=== PATIENT | female | born 1940 | race Caucasian/White ===

== ENCOUNTER 2016-07-23 14:39 | Inpatient (IN) | payer MEDICARE, OTHER ==
--- NOTE | 2016-10-12 11:32 | HP ---
DATE OF CLINIC: 10/10/2016 JUSTA PHAM : 1940 PLANNED PROCEDURE: Right Total Knee Arthroplasty DATE OF PROCEDURE: October 15, 2016 SURGEON: Luca Simmons M.D. PCP: Dr. Manish George HISTORY OF PRESENT ILLNESS Justa Pham is a 76 year old female. * Medication list reviewed with patient allergy list reviewed with patient. * Tried Injections Right knee about 2 months ago, with another provider @ PCP office * Has not tried NSAIDS * Has not tried Physical Therapy Mrs. Pham is in today pre-operatively for her upcoming right total knee arthroplasty with Dr. Simmons on 10/15/16. Patient presents in good spirits and is ready to proceed. She denies recent illness or change in health. She did have a double bypass in May of 2015 and has done well. She is on Plavix and 81mg of aspirin daily. Her lead rider has requested discontinuing Plavix 5 days prior to surgery but continuing the aspirin. Patient denies prior surgical complications. She does have chronic lumbar back pain and has 2 prior fusions and laminectomy. Patient states she also has allergies and sensitivities to many opiate pain medications but tolerates morphine sulfate well. Pre-operative labs are pending. Her recent consult with Dr. Simmons follows: [id number] female who recently saw Arvin approximately 6 weeks ago for bilateral knee pain. Her history is as follows: The patient states that currently she is having left knee symptoms greater than that of the right initiated in January of this year. She was seen at [facility]. She had onset of significant amount of pain, swelling and some posterior soreness. She had x-rays and a left knee ultrasound and was subsequently diagnosed with ruptured Cavazos's cyst. The patient states that she has had increased difficulties with ambulatory activities, squatting, any attempt at kneeling, ascending stairs and descending stairs. She has had treatment on her right knee. She had an injection about two months ago with mild relief of her symptoms on the right after this injection. She denies significant degree of current hip pain, but has a lengthy history with regards to her spine having had multiple lumbar surgeries, laminectomies and lumbar fusions dating back to 2004 and 2006. Patient has used a trekking pole since seeing Arvin. She uses a single trekking pole that "helps significantly". 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 She also has coronary artery disease s/p a coronary artery bypass graft in May of 2015 with harvest of a right leg vein. Dr. Pope was her surgeon. Dr. Haas is her lead rider. She also has concerns regarding pain medication. She has had some difficulty with some pain medications in the past. She has a history of an anaphylactic reaction after a spine procedure, uncertain etiology. She has tolerated morphine without issues. In addition, she has chronic low back pain. She has non-insulin dependent diabetes. She has a previous left arterial femoral stent. She is on chronic Plavix. CURRENT MEDICATION * Aspirin EC 81 MG Tablet Delayed Release 1 once a day 0 days, 0 refills * Docusate Sodium 250 MG Capsule as needed 0 days, 0 refills * Docusate Sodium 250 MG Capsule as needed 0 days, 0 refills * Lisinopril 5 MG Tablet 1 once a day 0 days, 0 refills * Vitamin D3 5000 Unit Capsule as directed 0 days, 0 refills PAST MEDICAL/SURGICAL HISTORY Reported: Shoulder Arthroscopy Right shoulder Rotator cuff 1990 Left rotator cuff 05/2013. Medical: Bladder disease Diego-tox treatment 03/2014, Reported numbness Neuropathy both feet, Reported tingling Neuropathy both feet, cardiac history, Diabetes Mellitus Pre, Hypertension, Osteoporosis, and Vertigo. Surgical / Procedural: Prior surgery Multiple arm surgeries 1967- Fused Left thumb 2000 Sinus 2004 Angioplasty Left leg 2006 & 07/2010 & Stent 11/2010, Appendectomy 1975, Cholecystectomy 1983, Carpal Tunnel Surgery Both hands 2000-, Cardiac surgery Angioplasty 2x 1989- Angioplasty (stent) 2005-12 Angioplasty (2 stents) 12/2014 Angioplasty (stent) 03/2015 Double bypass 05/2015, and Back Surgery Laminectomy 2004 Lumbar fusion 2004 lumbar fusion 2006. Surgical: * Hysterectomy 1975 SOCIAL HISTORY Social history unchanged. Behavioral: Quit smoking 1984. Smoking status: Former smoker. Alcohol: Alcohol 1-2 beers a month. Work: Homemaker. ALLERGIES * Codeine Derivatives * Demerol * Dilaudid * Fentanyl * NSAIDS * OxyContin * Penicillin * Percocet * Sulfa Drugs * Talwin * Vicodin FAMILY HISTORY 1 children living Family medical history diabetes-father COPD-mother Cancer father Heart disease mother Osteoarthritis mother REVIEW OF SYSTEMS Systemic: No fever and no recent weight change. Head: No head symptoms. Cardiovascular: No cardiovascular symptoms. Pulmonary: No pulmonary symptoms. Gastrointestinal: No gastrointestinal symptoms. Psychological: No psychological symptoms. Skin: No skin lesions and no rash . Musculoskeletal: Chronic LBP, multi-joint OA. PHYSICAL FINDINGS * Vitals taken 10/10/2016 09:58 am BP-Sitting R 146/69 mmHg 100 - 120/56 - 80 BP Cuff Size Regular Pulse Rate-Sitting 58 bpm 50 - 100 Temp-Oral 96.7 F 96 - 101 Height 67 in 59 - 68 Weight 221 lbs 95 - 175 Body Mass Index 34.6 kg/m2 Body Surface Area 2.11 m2 Pain Level 2 Ears, Nose, Throat: * ENT: normal. Lungs: * Clear to auscultation. Cardiovascular: Heart Rate and Rhythm: * Normal. Abdomen: * Normal. Neurological: Motor: * Dominant Hand = Right Hand. Patient is an obese female in no acute distress, normal appearing mood and affect. She has a shuffling, stiff-legged gait. Pelvis is level. Evaluation of the right knee shows skin integrity to be well-preserved, no wounds, rashes or lesions. She has a valgus alignment. This is partially correctable. Motion is 5-110 degrees. She does have significant swelling, no gross effusion. Ligamentous exam is intact for cruciates and collaterals. She is tender lateral greater than medial, fairly diffuse. There is pain with patellar compression and some crepitation. NT in the proximal tibia. She does have some lower extremity edema that is symmetric bilaterally. She is able to flex and extend her toes and ankle. Light touch sensation is diminished, stocking glove distribution as she discussed. She has 1+ dorsalis pedis pulse and non-palpable posterior tibial pulse. Gentle rotation of the hip is non-irritable. Sitting SLR is negative. Evaluation of the left knee shows mild swelling. Skin integrity to be well-preserved, no wounds, rashes or lesions. No gross effusion. She has motion 0-110 degrees. Pain with patellar compression. Mild tenderness diffusely medial and lateral. Ligamentous exam is intact for cruciates and collaterals. NT in the proximal tibia. Calf is soft and NT with edema as noted previously. Her foot is warm. She is able to flex and extend her toes and ankle. I am unable to palpate a dorsalis pedis or posterior tibial pulse. TESTS Previous 3 views bilateral knees, outside films, 01/23/16, on the left and 12/09/15 on the right demonstrate advanced degenerative disease on the right side. This is tricompartmental with significant lateral compartment involvement, periarticular sclerosis and hypertrophic spurring. She has mild medial compartment irregularity and moderately advanced degenerative changes of the patellofemoral articulation involving primarily the lateral facet. Uncertain whether these are weight-bearing films. Left knee shows mild irregularity of the medial and lateral compartments. Relatively well maintained joint space with marked patellofemoral changes and complete obliteration of the lateral facet. Again, unclear whether these are weight-bearing films. They do not appear to be. ASSESSMENT * Localized primary osteoarthritis of the right knee Advanced DJD, bilateral knees, clinically and radiographically worse on the right. THERAPY * Patient fall risk screen positive. * Patient eligible for fall risk assessment. * Patient received fall risk assessment. PLAN * Unilateral primary osteoarthritis, right knee Physical Therapy: PT Marla Meeks * Total knee arthroplasty -Right Discussed with patient in detail the limitations, expectations as well as risks and possible complications of surgery including, but not limited to wound problems or infection, neurovascular injury, continued knee pain or dysfunction, including the possibility of prosthetic wear or failure over time that may require additional operative or non-operative treatment. Patient also realizes the perioperative risks including risks associated with anesthesia and would like to proceed. A full PAR conference was held, questions and concerns addressed and informed consent was obtained. Patient will be sent from my office for completion of the preoperative workup. [facility] for perioperative medical management. Patient will resume Plavix and aspirin postoperatively for DVT prophylaxis. Patient would like to perform their postop PT at [facility] with right total knee arthroplasty protocol WBAT. CARE TEAM Manish George MD [facility] Cuauhtemoc Auguste M.D. Cardiovascular Disease CC: Manish George MD [facility]/sg
[2016-10-15] MEDS ORDERED: PROPOFOL 20 ML IV ONE ×3 (09:29→14:21)
[2016-10-15] MEDS ORDERED: MIDAZOLAM HCL 5 MG/5 ML VIAL ONE (09:29)
[2016-10-15] MEDS ORDERED: LIDOCAINE 2% (PRES FREE) 5 ML VIAL ONE (09:29)
[2016-10-15] MEDS ORDERED: FENTANYL 100 MCG/2 ML VIAL ONE (09:30)
[2016-10-15] MEDS ORDERED: IV START KIT ONE (09:35)
[2016-10-15] MEDS ORDERED: SODIUM CHLORIDE 0.9% 1,000 ML ONE (09:36)
[2016-10-15] MEDS ORDERED: SPINAL PROCEDURAL TRAY 1 EACH ONE (10:18)
[2016-10-15] MEDS ORDERED: NERVE BLOCK PROCEDURAL TRAY 1 EACH ONE (10:18)
[2016-10-15] MEDS ORDERED: ROPIVACAINE 0.5% 30 ML VIAL ONE (10:19)
[2016-10-15] MEDS ORDERED: CLINDAMYCIN 900 MG PREMIX 50 ML IV ONE (10:26)
[2016-10-15] MEDS ORDERED: TRAMADOL HCL 50 MG TABLET ONE (10:28)
[2016-10-15] MEDS ORDERED: ONDANSETRON 4 MG/2ML 2 ML VIAL ONE ×2 (10:28→12:59)
[2016-10-15] MEDS ORDERED: CELECOXIB 200 MG CAPSULE ONE ×2 (10:29→10:30)
[2016-10-15] MEDS ORDERED: GABAPENTIN 600 MG TABLET ONE (10:29)
[2016-10-15] MEDS ORDERED: FAMOTIDINE 20 MG TABLET ONE (10:29)
[2016-10-15] MEDS ORDERED: CLONIDINE HCL 0.1 MG/24 HR (7 DAY PATCH) TD ONE ×2 (10:29→10:35)
[2016-10-15] MEDS ORDERED: FAMOTIDINE 20 MG TABLET PO ONE (10:35)
[2016-10-15] MEDS ORDERED: GABAPENTIN 600 MG TABLET PO ONE (10:51)
[2016-10-15] MEDS ORDERED: ONDANSETRON 4 MG/2ML 2 ML VIAL IV ONE (10:51)
[2016-10-15] MEDS ORDERED: ONDANSETRON 4 MG/2ML 2 ML VIAL IM ONE (10:51)
[2016-10-15] MEDS ORDERED: BUPIVACAINE 0.75% SPINAL AMPUL 2 ML ONE (10:54)
[2016-10-15] MEDS: GABAPENTIN 600 MG TABLET PO ONE ×2 (11:10→16:26)
[2016-10-15] MEDS ORDERED: BUPIVACAINE 0.25% (MDV) 20 ML in SODIUM CHLORIDE 0.9% FLUSH 20 ML IF PRN (11:30)
[2016-10-15] MEDS ORDERED: BUPIVACAINE 0.25% (MDV) 24 ML, MORPHINE SULFATE 8 MG, EPINEPHRINE 0.3 MG in SODIUM CHLO... IF PRN (12:25)
[2016-10-15] MEDS ORDERED: POLYMYXIN B SULFATE 500,000 UNITS, BACITRACIN 25,000 UNITS in SODIUM CHLORIDE 3 L IRRIG... IR PRN (12:26)
[2016-10-15] MEDS ORDERED: TRANEXAMIC ACID 1,000 MG in SODIUM CHLORIDE 0.9% 100 ML IV PRN (12:26)
[2016-10-15] MEDS ORDERED: EPHEDRINE SULFATE UD SYR 25 MG 25 MG/5 ML SYRINGE IV ONE ×2 (13:11→13:31)
[2016-10-15] MEDS ORDERED: MORPHINE SULFATE 4 MG/ML SYRINGE IV PRN (13:22)
[2016-10-15] MEDS ORDERED: ONDANSETRON 4 MG/2ML 2 ML VIAL IV PRN ×2 (13:22→15:57)
[2016-10-15] MEDS ORDERED: ON-Q PUMP/ROPIVACAINE 0.2% 450 ML in PREMIX BAG 1 EACH NB PRN ×2 (13:22→15:57)
[2016-10-15] MEDS ORDERED: ATROPINE SULFATE 0.4 MG/1 ML VIAL IV PRN (13:22)
[2016-10-15] MEDS ORDERED: PROMETHAZINE HCL 25 MG/ML VIAL IM PRN (13:22)
[2016-10-15] MEDS ORDERED: NALOXONE HCL 0.4 MG/ML VIAL IV PRN (13:22)
[2016-10-15] MEDS ORDERED: SODIUM CHLORIDE 0.9% 1,000 ML IV SCH (13:30)
--- NOTE | 2016-10-15 14:35 | PCMBPN ---
Brief Post Op Note: Date of Procedure: 10/15/16 Preoperative Diagnosis: DJD right knee Postoperative Diagnosis: 1. [Same] Procedure: right TKA Surgeon: Luca Simmons MD [facility]ist[facility] Anesthesia: spinal/Add block ([place]) Findings: PF/LC Condition: stable to PAR Complications: none IV Fluids: 2100mLs of LR Urine Output: 350 mLs Estimated Blood Loss: 150 mLs Tourniquet Time: ~40 Specimens: [N/A] Implants: Legion Drains: none
[2016-10-15] MEDS ORDERED: ON-Q PUMP/ROPIVACAINE 0.2% 450 ML ONE (15:07)
[2016-10-15] MEDS ORDERED: BISACODYL 10 MG SUP PR PRN (15:57)
[2016-10-15] MEDS ORDERED: CALCIUM CARBONATE 500 MG TAB.CHEW PO PRN (15:57)
[2016-10-15 16:26] VITALS: BMI 33.7
--- NOTE | 2016-10-15 16:29 | RAD ---
HISTORY: Postop right TKR COMPARISON: 06/27/2016 TECHNIQUE: two of the right knee FINDINGS: A total knee arthroplasty is present. Hardware is intact with out signs of failure or loosening. There is no fracture or dislocation. Overlying bandaging does limit assessment. Vascular calcifications are present. Soft tissue gas is identified.. IMPRESSION: Intact hardware without fracture or dislocation. Satisfactory postoperative exam
[2016-10-15] MEDS: MORPHINE SULFATE 2 MG/ML SYRINGE IV PRN ×4 (16:32→19:44)
[2016-10-15] MEDS: ACETAMINOPHEN 500 MG TABLET PO SCH ×2 (16:59→23:48)
[2016-10-15] MEDS ORDERED: PUMP TUBING ONE (17:27)
[2016-10-15] MEDS ORDERED: NITROGLYCERIN 0.4 MG/TAB.SUBL BOT SL PRN (17:53)
[2016-10-15] MEDS: NS/Potassium Chlor 20 mEq 1,000 ML IV SCH (18:35)
--- NOTE | 2016-10-15 19:50 | CONS ---
FAM KESSLER [id number] HOSPITALIST CONSULT DATE OF ADMISSION: October 15, 2016 DATE OF CONSULTATION: October 15, 2016 REQUESTING PHYSICIAN: Luca Simmons M.D. REASON FOR CONSULTATION: Please assist with medical management in patient status post right total knee arthroplasty. RECENT HISTORY: The patient is a 76-year-old female here for elective right total knee arthroplasty. Per history and physical, cardiology had requested continue on aspirin but at 325 mg a day and hold the Plavix. At this time patient reports she is feeling well but is just having postoperative pain in her knee. Breathing is doing okay. Stomach is feeling fine. No other complaints. PAST MEDICAL: Remarkable for: 1. Coronary artery disease. She has had angioplasty in 2005 and then subsequent angioplasty with stenting in 2005 and then she has had further angioplasty in 2014 times two and ultimately went to two vessel coronary artery bypass graft in May,. She has been on aspirin and Plavix since that time. 2. She has a history of peripheral vascular disease and has a left femoral stent placed and has some degree of claudication in the calf at one block. Studies from her speech language pathologist suggest that she has at least a 50% stenosis on the left. 3. She has had neuropathy involving her legs up to the level of the knees and to some degree in the tips of her fingers. 4. She has had some chronic low back pain and has had previous laminectomy and lumbar fusion. 5. She has had pre-diabetes and is on lisinopril and metformin. 6. She also has osteoarthritis. 7. She had a history of anaphylaxis when she had a spinal procedure in 2006 and it was felt this was likely due to fentanyl but they had given her a long list of medicines that she should avoid taking, so her list of pain medicines is very restricted. PAST SURGICAL HISTORY: Remarkable for: 1. Arm surgeries in 1967 and 1969 after a fall on the left elbow. 2. Hysterectomy in 1975. 3. Appendectomy in 1975. 4. Cholecystectomy in 1983. 5. Rotator cuff surgery in 1990. 6. Angioplasty done in 1989 and 1990. 7. Left thumb fusion in 2000. 8. Carpal tunnel surgery in 2000 and 2001. 9. Sinus surgery in 2004. 10. Laminectomy in 2004. 11. Lumbar fusion in 2004 and 2006. 12. She had angioplasty with stent placement in 2005 and 2006. Subsequently angioplasty of the left leg in 2006 and 2010. 13. Left rotator cuff surgery in 2012. 14. Further cardiac angioplasty in December and March,. 15. Subsequent coronary artery bypass graft of two vessels in 2014. 16. Cataract surgery. ALLERGIES: Listed as: 1. CODEINE. 2. FENTANYL. 3. HYDROCODONE. 4. HYDROMORPHONE. 5. MEPERIDINE. 6. NONSTEROIDALS. 7. OXYCODONE. 8. PENICILLINS. 9. PENTAZOCINE. 10. SULFA. HOME MEDICATIONS: 1. Amitriptyline 5 mg at bedtime. 2. Aspirin 81 mg orally daily. 3. Atorvastatin 40 mg daily. 4. Bisacodyl 10 mg rectally as needed. 5. Plavix 75 mg daily. 6. Docusate 250 one orally daily as needed. 7. Fenofibrate 54 mg daily. 8. Lisinopril 5 mg daily. 9. Metformin 500 mg orally twice daily. 10. Nitrofurantoin 15 mg orally daily. 11. Nitroglycerin one tablet sublingually every five minutes times three doses as needed for chest pain. 12. Pregabalin 75 mg orally twice daily. 13. Vitamin D3 5000 units orally daily. SOCIAL HISTORY: She quit smoking in 1984. She reports one or two drinks per month. She has two cats. 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 She has one child with her and one from a prior relationship. No particular episcopal affiliation. Hobbies include sewing, crocheting and embroidery. FAMILY HISTORY: Father at 55 with diabetes and cancer. Mom age 83 of chronic obstructive pulmonary disease, coronary artery disease, and osteoarthritis. REVIEW OF SYSTEMS: Eyes have been okay. She did have cataract surgery. She states it was modestly helpful in that reduced halos but her visual acuity did not improve enough for her. Ears are okay. Nose is okay. She has had previous sinus surgeries. She does have frequent runny nose and occasional infection perhaps once a year. Mouth has been okay. Teeth have been okay. Neck has been okay. She has noted some decreased range of motion. Lungs are okay. Heart, previous coronary artery disease. No heaviness, no chest pain, no pressure which were the symptoms she had previously when she had her coronary artery disease. Stomach has been okay. She has occasional constipation which she takes prunes for. No significant diarrhea. She has a urinary catheter in currently. She did have Botox of the bladder which was very helpful for a spastic bladder. Legs have arthritis and neuropathy. She has some claudication reported at one block in the left calf. She has had no history of stroke, no skin complaints. Mood has been good. She states both she and her have DO NOT RESUSCITATE status and does not wish to have resuscitation in the event of a significant event. PHYSICAL EXAM: GENERAL: A non-toxic female. VITAL SIGNS: Blood pressure is 139/54, 100% saturation on supplemental oxygen 2 liters nasal cannula, heart rate 65, temperature is not available. HEAD: Head is normocephalic and atraumatic. EYES: Are unremarkable. Pupils are small consistent with administration of morphine. EARS: Normal with minimal injection of the ear drums bilaterally but no effusion. NOSE: Is unremarkable. MOUTH: Oropharynx unremarkable. Dentition is normal. Mucous membranes are normal. NECK: Is supple without masses or adenopathy. LUNGS: Are clear to auscultation bilaterally. HEART: Regular rate and rhythm without significant murmur. ABDOMEN: Is soft, nontender, nondistended. Bowel sounds are normal. No rebound. No guarding. No tenderness. EXTREMITIES: Her right knee is dressed and she has compression stockings bilaterally. She is able to move her toes on both feet but cannot feel much below her knees on both sides due to neuropathy. Hands are slightly cool but perfusion appears to be appropriate. NEUROLOGICAL: She is oriented times three and other than some initial discomfort that was relieved with the administration of morphine, she appears to be doing well postoperatively. PREOPERATIVE LABORATORY: Showed a white count of 9.2, hemoglobin of 14.1, platelets 242, INR is 0.95, sodium 142, potassium 4.1, chloride 103, CO2 31, BUN 18, creatinine 0.9, glucose 86. Calcium is 9.7. Liver function tests are normal. Urinalysis is normal. IMAGING: Chest x-ray is normal. Previous sternotomy noted. ELECTROCARDIOGRAM: Sinus bradycardia, possible anterior infarction age indeterminate . Nonspecific ST changes noted. Low voltage. ASSESSMENT AND PLAN: 1. Postoperative day zero status post right total knee arthroplasty. Appreciate orthopedic care. Postoperative pain may be complicated by a reported intolerance to multiple pain medications, but morphine should be adequate and appears to be well tolerated at this time. She has tolerated morphine well before. 2. Coronary artery disease status post bypass and stenting. I reviewed the note from orthopedics and reviewed the note from [facility]. Note from Dr. Auguste indicates no special cardiac workup required. And Plavix can be held for five days prior to the procedure and restarted when safe. Aspirin to be continued. Discussed with cardiology covering and increasing aspirin to 325 mg daily would also be acceptable while we hold the Plavix. 3. History of prediabetes. Will be holding metformin and lisinopril. 4. History of chronic pain and neuropathy. We will continue on the pregabalin. 5. Body mass index 33.7 which will affect care and recovery. 6. Peripheral vascular disease with previous stenting left leg and some degree of claudication but appearing to be stable. This is in the nonoperative leg. 7. History of anaphylaxis reported in 2006 attributed to pain medicines. She appears to be doing well at this time with the current pain medicines, so we will continue current status. 8. Assumed history of urinary tract infection on suppressive therapy with nitrofurantoin. Would defer to primary care physician regarding senior living use of nitrofurantoin. 9. DO NOT RESUSCITATE status confirmed with patient and . 10. Venous thrombosis prophylaxis. Anticipate continued mechanical treatment and the 325 mg dose of aspirin while she is here. Resumption of Plavix will be per orthopedics. Thank you for this consultation, we will follow with you. cc: Cuauhtemoc Auguste M.D. Luca Simmons M.D. Manish George M.D.
[2016-10-15] MEDS: PREGABALIN 75 MG CAP PO SCH (20:27)
[2016-10-15] MEDS: DOCUSATE SODIUM 100 MG CAPSULE PO SCH (20:27)
[2016-10-15] MEDS: ASCORBIC ACID 500 MG TABLET PO SCH (20:27)
[2016-10-15] MEDS: MORPHINE SULFATE 4 MG/ML SYRINGE IV PRN ×2 (21:54→23:47)
[2016-10-15] MEDS: CLINDAMYCIN 600 MG PREMIX 600 MG in Premix (D5W) 50 ml 1 EACH IV SCH (23:47)
[2016-10-15] MEDS: TEMAZEPAM 15 MG CAPSULE PO PRN (23:47)
[2016-10-16] MEDS ORDERED: MORPHINE SULFATE 4 MG/ML SYRINGE IV ONE (00:45)
[2016-10-16] MEDS: NS/Potassium Chlor 20 mEq 1,000 ML IV SCH ×3 (02:41→16:52)
[2016-10-16 05:50] LABS: HEMATOCRIT 39.1 % (37.0-47.0); HEMOGLOBIN 12.7 gm/l (12.0-16.0); MEAN CELL VOLUME 96.8 fl (81.0-99.0); MEAN CORPUSCULAR HEMOGLOBIN 31.4 pg (27.0-31.0); MEAN CORPUSCULAR HGB CONC 32.5 g/dl (33.0-37.0); RED CELL DISTRIBUTION WIDTH 13.2 % (11.5-14.5)
[2016-10-16] MEDS: MORPHINE SULFATE 4 MG/ML SYRINGE IV PRN (06:11)
[2016-10-16] MEDS: CLINDAMYCIN 600 MG PREMIX 600 MG in Premix (D5W) 50 ml 1 EACH IV SCH (06:12)
[2016-10-16 06:16] LABS: CALCIUM 7.9 mg/dL (8.6-10.3)
[2016-10-16] MEDS: ACETAMINOPHEN 500 MG TABLET PO SCH ×5 (07:10→19:31)
[2016-10-16] MEDS: MORPHINE SULFATE 2 MG/ML SYRINGE IV PRN (07:19)
[2016-10-16] MEDS ORDERED: ROPIVACAINE 0.75% 20 ML AMP ONE (07:32)
[2016-10-16] MEDS ORDERED: DEXAMETHASONE SOD PHOS 4 MG/1 ML VIAL ONE ×2 (07:33→08:17)
[2016-10-16] MEDS ORDERED: ROPIVACAINE 0.5% 30 ML VIAL ONE (08:16)
[2016-10-16] MEDS ORDERED: NERVE BLOCK PROCEDURAL TRAY 1 EACH ONE (08:19)
[2016-10-16] MEDS ORDERED: FENTANYL 100 MCG/2 ML VIAL ONE (08:21)
[2016-10-16] MEDS ORDERED: MIDAZOLAM HCL 5 MG/5 ML VIAL ONE (08:21)
[2016-10-16] MEDS ORDERED: SODIUM CHLORIDE 0.9% FLUSH 10 ML ONE (08:27)
[2016-10-16] MEDS ORDERED: CLOPIDOGREL BISULFATE 75 MG TABLET PO SCH (09:00)
--- NOTE | 2016-10-16 10:12 | OP ---
FAM KESSLER [id number] : 1940 DATE OF SURGERY: October 15, 2016 PREOPERATIVE DIAGNOSIS: Degenerative joint disease right knee POSTOPERATIVE DIAGNOSIS: Same PROCEDURE: Right Total Knee Arthroplasty COMPONENTS: Legion size 5 posterior stabilized Oxinium cemented femoral component, size 6 cemented tibial base plate, 9mm high flexion cross-linked polyethylene articular insert, 32mm resurfacing patella. SURGEON: Luca Simmons M.D. COUNTER CLERK TRACTOR PARTS: Suzan CHRISTIAN) ANESTHESIA: Spinal plus adductor nerve block per [place] ESTIMATED BLOOD LOSS: 150 cc IV FLUID REPLACEMENT: per anesthesia, 2.1 liters crystalloid. URINE OUTPUT: 350 cc DRAINS: None TOURNIQUET TIME: Approximately 40 minutes COMPLICATIONS: None HISTORY: Briefly, patient is a 76-year-old female with clinical and radiographic evidence of advanced degenerative disease of their right knee. They have failed traditional non-operative management and desire elective total knee arthroplasty. For additional details, please refer to the previously dictated Preoperative History and Physical Examination. A PAR conference was held, questions and concerns were addressed, and informed consent was obtained. FINDINGS: Tricompartmental degenerative disease significant in the lateral compartment with eburnation and wear of distal femur as well as posterior lateral femur, also fairly significant central and posterolateral tibial plateau. PROCEDURE: The patient was taken to the operating room after the placement of a spinal anesthetic and regional nerve block. They were placed supine on the operating room table, a tourniquet was applied to the proximal thigh and the right lower extremity was prepped and draped out in the usual sterile fashion. Preoperative IV antibiotics were given empirically. Intraoperative DVT prophylaxis consisted of contralateral foot pumps. Personal filtration suits were used as was a closed room environment. A WHO timeout was taken. Surgical site was identified and confirmed. The leg was then elevated and the tourniquet inflated after gravity exsanguination. This was released after initial exposure and not utilized again until cementation. Tranexamic acid was infiltrated over 10 minutes prior to incision, 1 gram dose per protocol. A similar 2nd dose was given at initiation of closure. With the knee flexed, an anteromedial incision was made from the level of the tibial tubercle to two centimeters proximal to the superior pole of the patella. A medial arthrotomy was performed with a mini-mid vastus approach. A medial subperiosteal proximal tibial release was performed and a portion of the anterior fat pad was excised to improve visualization. The supra-patellar pouch was raised subperiosteally. The anterior and posterior cruciate ligaments were excised as were the remaining portions of the anterior horns of the medial and lateral menisci. Minimally invasive instrumentation and philosophy were used throughout the procedure in an attempt to decrease the extent of soft tissue disruption/damage. Patient matched cutting blocks were also used as per our preoperative plan. The [employer] patient matched distal femoral cutting block was applied and secured to the bone. We confirmed that the alignment matched our preoperative plan and made the distal femoral cut. We confirmed the size of the femur and placed the appropriate 4-in-1 cutting block making our anterior and posterior condylar cuts followed by the chamfer cuts. Residual marginal osteophytes were removed. Attention was then directed to the tibia which was retracted anteriorly. Remaining meniscal tissue was excised. The Visionaire patient matched tibial block was then positioned and secured to bone. Alignment was confirmed as per our preoperative plan and the proximal tibial cut made. The tibia was sized and we passed the 11 mm. punch. We turned our attention to balancing the flexion and extension gaps. As I suspected from our initial cuts, we were tight in flexion and extension. Our blocks had taken minimal distal femur. I felt this situation was best remedied by cutting additional distal femur and down-sizing the femur, which I suspected would allow for a better distal femoral fit. With that in mind, we took an additional 4mm off of the distal femur, which took this flush with the sulcus and then down-sized to a 5 shifting the block 2mm anteriorly which allowed an increase in our flexion gap by 4mm as well. We removed residual posterior osteophytes and completed a limited posterior capsular release. We confirmed hemostasis. We then completed the femoral preparation by reaming and chiseling the notch. Femoral and tibial trial components were placed. We were able to obtain full extension with nice roll back and good coronal plane alignment and stability. The patella tracked well and was prepared using the Adarsh patellar reaming system removing 9 mm. of bone. Osteophytes were removed prior to this with a rongeur and we performed a circumferential limited denervation using cautery. This was sized accordingly and punch holes were drilled. We marked our tibial rotation and removed the trial components after passing the cruciform tibial punch. The knee was then re-exsanguinated and the tourniquet inflated. Double antibiotic pulsatile lavage was used to irrigate the knee and clean the cancellous denton interstices which were then carefully dried. Periarticular injection was done at this point per protocol of the posterior capsule, posteromedial knee and synovium. Two doses of high viscosity, antibiotic impregnated polymethylmethacrylate were used to cement the tibial, femoral, and then patellar components. The knee was held in extension while the cement cured. All residual methacrylate was meticulously removed. Attention was then directed towards closure. We irrigated and the retinaculum was closed with a running #2 absorbable Strato-Fix suture. A second periarticular injection was done at this point per protocol. The repair was checked in maximum flexion. We then lightly irrigated the subcutaneous tissue and closed with interrupted 2-0 and 3-0 Vicryl Plus. The skin was then reapproximated with a subcuticular 4-0 Monocryl followed by Dermabond Prineo. A sterile compression dressing was applied. The patient was then transferred to their hospital bed and sent to the post anesthesia recovery room in stable condition. They tolerated the procedure well. Sponge, instrument, and needle count were correct. CC: Manish George MD PT NATHANIEL Meeks
[2016-10-16] MEDS: MULTIVITAMINS 1 TAB TABLET PO SCH (10:17)
[2016-10-16] MEDS: ASPIRIN (ENTERIC COATED) 325 MG TABLET.EC PO SCH (10:17)
[2016-10-16] MEDS: NITROFURANTOIN MACROCRYSTAL 50 MG CAPSULE PO SCH (10:17)
[2016-10-16] MEDS: DOCUSATE SODIUM 100 MG CAPSULE PO SCH ×2 (10:17→20:45)
[2016-10-16] MEDS: MORPHINE SULFATE 30 MG TAB.PRT.SR PO SCH ×2 (10:17→16:52)
[2016-10-16] MEDS: PREGABALIN 75 MG CAP PO SCH ×2 (10:18→20:44)
[2016-10-16] MEDS: ASCORBIC ACID 500 MG TABLET PO SCH ×2 (10:18→20:45)
--- NOTE | 2016-10-16 10:23 | PDOC43 ---
- Subjective Chief Complaint: R TKA Patient had a high level of pain during the night, medication revised, and this am, block was revised, and pt reports she is feeling better this am. No respiratory c/o, no GI c/o. No side effects from medication. No chest pain, no pressure. - Objective Vital Signs Temperature 99.2 F 10/16/16 09:30 Pulse Rate 66 10/16/16 09:30 Respiratory Rate 18 10/16/16 09:30 Blood Pressure 95/52 10/16/16 09:30 O2 Saturation by Pulse Oximetry 99 10/16/16 09:30 Oxygen Delivery Method Nasal Cannula Oxygen Flow Rate 3 Vital Signs Last 12 Hours Temp Pulse Resp BP Pulse Ox 10/16/16 09:30 99.2 F 66 18 95/52 99 10/16/16 07:41 98.8 F 65 15 126/54 93 10/16/16 07:15 15 10/16/16 04:07 18 10/16/16 04:00 98.0 F 78 18 128/56 98 10/15/16 23:49 97.6 F 66 18 159/68 100 Intake and Output 10/14/16 10/15/16 10/16/16 23:59 23:59 23:59 Intake Total 400 1140 Output Total 200 2100 Balance 200 -960 General: Alert, Cooperative, No Acute Distress (appears to be doing better this am.) Lungs: Other (mostly CTA bilat, few wheezes noted bilat, mild. Good air movement.) Cardiovascular: Regular Rate and Rhythm Abdomen: Soft, Normal Bowel Sounds, Non-Distended, No Tenderness Extremities: Other (R leg without erythema or streaking. Superior portion of dressing moved back, appears unremarkable, but dressing not completely removed ( will be having Dr Simmons check on this later this am). Calves unrem, not tender. Feet unrem. SCDs, JENNY hose on. Pt with chronic neuropathy.), No Edema Skin: Normal Color Wound: Other (dressing appears intact.) Neurological: Normal Speech Psych/Mental Status: Normal Affect Laboratory 10/16/16 05:30 10/16/16 05:30 10/16/16 10/16/16 07:24 05:30 RBC 4.04 L MCH 31.4 H MCHC 32.5 L Estimated GFR 81 H POC Capillary Glucose 132 H Calcium 7.9 L Current Medications: Current meds reviewed in EMR. Active Medications Acetaminophen (Tylenol) 1,000 mg PO Q6H [facility] Last Admin: 10/16/16 07:19 Dose: 1,000 mg Ascorbic Acid (Vitamin C) 500 mg PO BID [facility] Last Admin: 10/15/16 20:27 Dose: 500 mg Aspirin (Ecotrin) 325 mg PO DAILY [facility] Bisacodyl (Dulcolax) 10 mg HI DAILY PRN PRN Reason: Constipation Bisacodyl (Dulcolax) 10 mg HI DAILY PRN PRN Reason: If no BM by POD#3 Calcium Carbonate/Glycine (Tums) 1,000 - 2,000 mg PO Q2H PRN PRN Reason: Heartburn/Indigestion Docusate Sodium (Colace) 100 mg PO BID [facility] Last Admin: 10/15/16 20:27 Dose: 100 mg Ropivacaine 450 ml/ Sterile (Water) 450 mls @ 0 mls/hr NB Q50H PRN; Protocol PRN Reason: Pain Last Admin: 10/15/16 19:45 Dose: 14 mls/hr Potassium Chloride/Sodium Chloride (Ns/Potassium Chlor 20 Meq) 1,000 mls @ 125 mls/hr IV .Q8H [facility] Last Admin: 10/16/16 02:41 Dose: Not Given Magnesium Hydroxide (Milk Of Magnesia) 30 ml PO DAILY PRN PRN Reason: If no BM by evening of POD#1 Miscellaneous (Remove Patch) 1 each TD X1 ONE Stop: 10/16/16 14:28 Miscellaneous (Fenofibrate [Lofibra 54 Mg Tablet]) 1 tab PO DAILY [facility] Morphine Sulfate (Morphine Sulfate) 2 - 4 mg IV Q2H PRN PRN Reason: Pain (Severe/Breakthrough) Last Admin: 10/16/16 06:11 Dose: 4 mg Morphine Sulfate (Morphine Sulfate) 2 - 8 mg IV Q2H PRN PRN Reason: Pain (Severe/Breakthrough) Last Admin: 10/16/16 07:19 Dose: 4 mg Morphine Sulfate (Ms Contin) 30 mg PO Q8HR [facility] Morphine Sulfate (Morphine Sulfate) 15 mg PO Q4H PRN PRN Reason: Pain Multivitamins (One-A-Day) 1 tab PO DAILY [facility] Nitrofurantoin Macrocrystals (Macrodantin) 50 mg PO DAILY [facility] Nitroglycerin (Nitrostat) 0.4 mg SL Q5M X 3 DOSES PRN PRN Reason: Chest Pain Ondansetron HCl (Zofran) 4 - 6 mg IV Q6H PRN PRN Reason: Nausea/Vomiting Pregabalin (Lyrica) 75 mg PO BID [facility] Last Admin: 10/15/16 20:27 Dose: 75 mg Sodium Chloride (Normal Saline 10ml Flush) 10 - 50 ml IV PRN PRN PRN Reason: IV Flush Last Admin: 10/16/16 07:20 Dose: 10 ml Sodium Chloride (Normal Saline 10ml Flush) 10 ml IV Q8HR [facility] Last Admin: 10/16/16 02:42 Dose: 10 ml Temazepam (Restoril) 15 mg PO BEDTIME PRN PRN Reason: Insomnia Last Admin: 10/15/16 23:47 Dose: 15 mg - Problems: Assessment/Plan (1) S/P total knee arthroplasty Qualifiers: Laterality: right Qualifier Code: (Z96.651) Presence of right artificial knee joint Status: AcuteAssessment/Plan: Appreciate ortho care, nursing care, therapy care. Some difficuty with pain control, last night, appreciate CHUCK TENDER revision of block , now doing better. 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 Pt has extensive list of medication intolerances, including most narcotics and NSAIDs. Morphine reported to be tolerated well. (3) Peripheral vascular disease Status: ChronicAssessment/Plan: with L sided femoral (?) stent Previous MADHURI showed good R sided flow RN reports pulses fairly symmetric at this time. (4) S/P CABG x 2 Status: ChronicAssessment/Plan: Had been on Plavix and ASA 81 Now on 325 mg daily ASA, holding Plavix. Consider resumption of Plavix when risks of bleeding felt safe by ortho VTE Prophylaxis: ASA, mechanical tx Disposition: TBD, appreciate therapy care
[2016-10-16] MEDS: MORPHINE SULFATE 30 MG TABLET PO PRN (12:40)
[2016-10-16] MEDS ORDERED: MAGNESIUM HYDROXIDE 30 ML UDCUP PO PRN (14:27)
[2016-10-16] MEDS ORDERED: REMOVE PATCH 1 EACH UNIT TD ONE (14:27)
[2016-10-17] MEDS: ACETAMINOPHEN 500 MG TABLET PO SCH ×4 (02:24→20:49)
[2016-10-17] MEDS: MORPHINE SULFATE 30 MG TAB.PRT.SR PO SCH ×3 (02:24→17:30)
[2016-10-17] MEDS: NS/Potassium Chlor 20 mEq 1,000 ML IV SCH ×3 (03:57→20:49)
[2016-10-17 06:07] LABS: ABSOLUTE NEUTROPHIL COUNT 11.3 K/mm3 (1.8-7.7); BASO % 0.1 % (0.2-1.0); HEMATOCRIT 34.5 % (37.0-47.0); HEMOGLOBIN 11.1 gm/l (12.0-16.0); IMM NEUT% 0.3 % (0-1); LYMPH % 14.1 % (15-45); MEAN CELL VOLUME 95.3 fl (81.0-99.0); MEAN CORPUSCULAR HEMOGLOBIN 30.7 pg (27.0-31.0); MEAN CORPUSCULAR HGB CONC 32.2 g/dl (33.0-37.0); MEAN PLATELET VOLUME 11.5 fl (7.4-10.4); MONO # 0.7 (0.0-0.8); MONO % 5.1 % (4-12); NEUT % 80.4 % (43-75); PLATELET COUNT 190 K/mm3 (130-400); RED CELL DISTRIBUTION WIDTH 13.2 % (11.5-14.5)
--- NOTE | 2016-10-17 08:41 | PDOC43 ---
- Subjective Findings: Pt seen this am awake and doing well. She is up using her incentive spirometer. States she had a much better night than last night and that pain control significantly improved. She has been up once already today and is encouraged. Subjective: Reports Flatus, Reports Pain Tolerable, Denies Chest Pain, Denies Shortness of Breath, Denies Nausea, Denies Vomiting, Denies Fever - Objective Vital Signs Temperature 98.2 F 10/17/16 07:00 Pulse Rate 58 10/17/16 07:00 Respiratory Rate 12 10/17/16 07:00 Blood Pressure 97/48 10/17/16 07:00 O2 Saturation by Pulse Oximetry 98 10/17/16 07:00 Oxygen Delivery Method Nasal Cannula Oxygen Flow Rate 2.5 Laboratory 10/17/16 05:30 10/17/16 10/17/16 10/16/16 07:38 05:30 20:48 RBC 3.62 L MCHC 32.2 L POC Capillary Glucose 131 H 159 H 10/16/16 10/16/16 16:56 11:37 RBC MCHC POC Capillary Glucose 183 H 177 H Active Medication Orders Category Date Time Status Acetaminophen [Tylenol] Med 10/15/16 16:00 Active 1,000 mg PO Q6H Ascorbic Acid [Vitamin C] Med 10/15/16 21:00 Active 500 mg PO BID Aspirin (Enteric Coated) [Ecotrin] Med 10/16/16 09:00 Active 325 mg PO DAILY Bisacodyl [Dulcolax] Med 10/15/16 15:57 Active 10 mg ID DAILY PRN Bisacodyl [Dulcolax] Med 10/18/16 14:27 Active 10 mg ID DAILY PRN Calcium Carbonate [Tums] Med 10/15/16 15:57 Active 1,000 - 2,000 mg PO Q2H PRN Docusate Sodium [Colace] Med 10/15/16 21:00 Active 100 mg PO BID Fenofibrate [Lofibra 54 mg tablet] Med 10/16/16 09:00 Pending 1 tab PO DAILY Magnesium Hydroxide [Milk of Magnesia] Med 10/16/16 14:27 Active 30 ml PO DAILY PRN Morphine Sulfate Med 10/16/16 07:12 Active 15 mg PO Q4H PRN Morphine Sulfate Med 10/15/16 18:57 Active 2 - 4 mg IV Q2H PRN Morphine Sulfate Med 10/16/16 00:48 Active 2 - 8 mg IV Q2H PRN Morphine Sulfate [Ms Contin] Med 10/16/16 09:00 Active 30 mg PO Q8HR Multivitamins [One-A-Day] Med 10/16/16 09:00 Active 1 tab PO DAILY NS/Potassium Chlor 20 mEq 1,000 ml Med 10/15/16 16:45 Active IV 125 mls/hr Nitrofurantoin Macrocrystal [Macrodantin] Med 10/16/16 09:00 Active 50 mg PO DAILY Nitroglycerin [Nitrostat] Med 10/15/16 17:53 Active 0.4 mg SL Q5M X 3 DOSES PRN On-Q Pump/Ropivacaine 0.2% 450 ml Med 10/15/16 15:57 Active Premix Bag [Premix Fluid] 1 each NB Q50H Ondansetron 4 mg/2ml Vial [Zofran] Med 10/15/16 15:57 Active 4 - 6 mg IV Q6H PRN Pregabalin [Lyrica] Med 10/15/16 21:00 Active 75 mg PO BID Sodium Chloride 0.9% Flush [Normal Saline 10ml Flush] Med 10/15/16 15:57 Active 10 - 50 ml IV PRN PRN Sodium Chloride 0.9% Flush [Normal Saline 10ml Flush] Med 10/15/16 17:00 Active 10 ml IV Q8HR Temazepam [Restoril] Med 10/15/16 15:57 Active 15 mg PO BEDTIME PRN Intake and Output 10/15/16 10/16/16 10/17/16 23:59 23:59 23:59 Intake Total 400 1860 500 Output Total 200 3500 850 Balance 200 -1640 -350 General: Afebrile HEENT: Atraumatic Lungs: Normal Air Movement Abdomen: Non-Distended Skin: Normal Color Neurological: Alert, Oriented x 4 Psych/Mental Status: Normal Affect, Normal Mood - Right Lower Extremity Motor: Extensor Hallucis Longus: 5/5, Tibialis Anterior: 5/5, Gastrocnemius: 5/5 , Peroneals: 5/5, Quadriceps: 3/5 Gross Sensation to Light Touch: Present: Deep Peroneal Nerve, Superficial Peroneal Nerve Capillary Refill: < 3 Seconds Motion: Calf soft NT Knee Rom 0-60 Min assist with SLR - Problems (1) S/P total knee arthroplasty Qualifiers: Laterality: right Qualifier Code: (Z96.651) Presence of right artificial knee joint Status: AcuteAssessment/Plan: Pod#2 1. Physical Therapy:Mobilize with PT/OT. Encouraged bed exercises 2. Pain Control:Per current orders. Seems better and is tolerating the MS contin Q8hrs 3. DVT Prophylaxis: ASA, foot pumps and mobility 4. Disposition:Doing better at this point. Anticipate d/c tomorrow 10-18-16 5. Medical Issues: Management per hospitalist appreciate the care and consult. WBC's elevated but is afebrile and doing fine will monitor
[2016-10-17] MEDS: NITROFURANTOIN MACROCRYSTAL 50 MG CAPSULE PO SCH (10:12)
[2016-10-17] MEDS: PREGABALIN 75 MG CAP PO SCH ×2 (10:12→20:50)
[2016-10-17] MEDS: ASPIRIN (ENTERIC COATED) 325 MG TABLET.EC PO SCH (10:12)
[2016-10-17] MEDS: DOCUSATE SODIUM 100 MG CAPSULE PO SCH ×2 (10:13→20:50)
[2016-10-17] MEDS: ASCORBIC ACID 500 MG TABLET PO SCH ×2 (10:13→20:50)
[2016-10-17] MEDS: MULTIVITAMINS 1 TAB TABLET PO SCH (10:13)
[2016-10-17] MEDS: MORPHINE SULFATE 2 MG/ML SYRINGE IV PRN (11:47)
[2016-10-17] MEDS ORDERED: DIPHENHYDRAMINE HCL 25 MG CAPSULE PO ONE (12:48)
--- NOTE | 2016-10-17 13:00 | PDOC43 ---
- Subjective Chief Complaint: R TKA RN reports pt with some itching; patient had mentioned this because she recalls some itching the previous time she had a problem with medication. . Pt reports some pain after walking, had gotten some extra morphine. No respiratory c/o, but recalls a little difficulty swallowing food, but this was very temporary. No GI c/o. Otherwise feeling well. - Objective Vital Signs Temperature 98.2 F 10/17/16 11:00 Pulse Rate 62 10/17/16 11:00 Respiratory Rate 16 10/17/16 11:00 Blood Pressure 114/61 10/17/16 11:00 O2 Saturation by Pulse Oximetry 92 10/17/16 11:00 Oxygen Delivery Method Room Air Oxygen Flow Rate 0 Intake and Output 10/15/16 10/16/16 10/17/16 23:59 23:59 23:59 Intake Total 400 1860 1200 Output Total 200 3500 1050 Balance 200 -1640 150 General: Alert, Cooperative, No Acute Distress HEENT: Atraumatic Lungs: Clear to Auscultation Bilaterally, Normal Air Movement Cardiovascular: Regular Rate and Rhythm Abdomen: Soft, Normal Bowel Sounds, Non-Distended Extremities: Other (R leg dressed. Ankles unrem.) Skin: Normal Color, Warm, Dry Neurological: Other (no yawning noted.) Psych/Mental Status: Normal Affect, Normal Mood Laboratory 10/17/16 05:30 10/17/16 10/17/16 10/16/16 07:38 05:30 20:48 RBC 3.62 L MCHC 32.2 L POC Capillary Glucose 131 H 159 H 10/16/16 16:56 RBC MCHC POC Capillary Glucose 183 H Current Medications: Current meds reviewed in EMR. - Problems: Assessment/Plan (1) S/P total knee arthroplasty Qualifiers: Laterality: right Qualifier Code: (Z96.651) Presence of right artificial knee joint Status: AcuteAssessment/Plan: Appreciate ortho care, nursing care, therapy care. Some difficuty with pain control initially, now doing better, but block appears leaking now. 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 Pt has extensive list of medication intolerances, including most narcotics and NSAIDs. Morphine reported to be tolerated well. Some itching reported today (10/17), plan benadryl x 1, and watch VS closely next several hours. (3) Peripheral vascular disease Status: ChronicAssessment/Plan: with L sided femoral (?) stent Previous MADHURI showed good R sided flow (4) S/P CABG x 2 Status: ChronicAssessment/Plan: Had been on Plavix and ASA 81 Now on 325 mg daily ASA, holding Plavix. Consider resumption of Plavix when risks of bleeding felt safe by ortho VTE Prophylaxis: ASA, mechanical tx Disposition: anticipate home, 10/18 appreciate therapy care
[2016-10-17 13:23] LABS: ALB/GLOB RATIO 1.3 (>1.0); ALBUMIN 3.4 gm/dL (3.5-5.7); CALCIUM 8.3 mg/dL (8.6-10.3)
[2016-10-17] MEDS: FENOFIBRATE 54 MG PO SCH ×2 (13:55→20:13)
[2016-10-17] MEDS: MORPHINE SULFATE 30 MG TABLET PO PRN (20:56)
[2016-10-18] MEDS: NS/Potassium Chlor 20 mEq 1,000 ML IV SCH ×3 (02:30→18:20)
[2016-10-18] MEDS: MORPHINE SULFATE 30 MG TAB.PRT.SR PO SCH ×2 (02:45→11:07)
[2016-10-18] MEDS: ACETAMINOPHEN 500 MG TABLET PO SCH ×4 (02:45→20:19)
[2016-10-18 06:33] LABS: HEMATOCRIT 32.3 % (37.0-47.0); HEMOGLOBIN 10.6 gm/l (12.0-16.0)
[2016-10-18] MEDS ORDERED: DIPHENHYDRAMINE HCL IV ONE (06:42)
[2016-10-18] MEDS ORDERED: SODIUM CHLORIDE 0.9% IV ONE (06:42)
[2016-10-18] MEDS ORDERED: DIPHENHYDRAMINE HCL 50 MG/1 ML VIAL ONE (06:44)
[2016-10-18] MEDS ORDERED: SODIUM CL FOR INHALATION 3 ML DOSE ONE (07:25)
[2016-10-18] MEDS ORDERED: RACEMIC EPINEPHRINE 2.25% 0.5 ML DOSE ONE (07:25)
[2016-10-18] MEDS ORDERED: RACEMIC EPINEPHRINE 2.25% 0.5 ML DOSE NEB ONE (07:32)
--- NOTE | 2016-10-18 08:00 | RAD ---
Exam: Portable chest COMPARISON: 06/27/2016 INDICATION: Dyspnea, recent knee surgery. FINDINGS: A semierect AP portable view the chest at 0741 hours demonstrate postsurgical changes of median sternotomy. Cardiac silhouette is within normal limits and stable given difference in technique. There is no pulmonary edema, focal airspace disease or pleural effusion. IMPRESSION: No acute pulmonary process.
[2016-10-18] MEDS ORDERED: DIPHENHYDRAMINE HCL 50 MG/1 ML VIAL IV PRN (08:34)
[2016-10-18] MEDS ORDERED: EPINEPHRINE 0.3 MG/0.3 ML IM ONE (08:34)
--- NOTE | 2016-10-18 08:35 | PDOC43 ---
- Subjective Findings: Pt seen this am awake. She has become hoarse with a sore throat during the night. Dr Doran was contacted and chest xray ordered and nebulizer rx started. She feels as if it is a reaction to her opiod meds. Her MS was held by Dr. Doran. Pain slightly increased at this point. Her nerve cath was removed secondary to leakage. Subjective: Reports Flatus, Reports Pain Tolerable, Reports Other, Denies Chest Pain, Denies Shortness of Breath, Denies Nausea, Denies Vomiting, Denies Fever - Objective Vital Signs Temperature 98.4 F 10/18/16 07:45 Pulse Rate 59 10/18/16 07:45 Respiratory Rate 14 10/18/16 08:00 Blood Pressure 109/53 10/18/16 07:45 O2 Saturation by Pulse Oximetry 88 10/18/16 07:45 Oxygen Delivery Method Room Air Oxygen Flow Rate 0 Laboratory 10/18/16 05:30 10/17/16 05:30 10/17/16 10/17/16 10/17/16 20:53 12:45 05:30 POC Capillary Glucose 122 H 107 H Calcium 8.3 L Total Protein 6.0 L Albumin 3.4 L Active Medication Orders Category Date Time Status Acetaminophen [Tylenol] Med 10/15/16 16:00 Active 1,000 mg PO Q6H Ascorbic Acid [Vitamin C] Med 10/15/16 21:00 Active 500 mg PO BID Aspirin (Enteric Coated) [Ecotrin] Med 10/16/16 09:00 Active 325 mg PO DAILY Bisacodyl [Dulcolax] Med 10/15/16 15:57 Active 10 mg LA DAILY PRN Bisacodyl [Dulcolax] Med 10/18/16 14:27 Active 10 mg LA DAILY PRN Calcium Carbonate [Tums] Med 10/15/16 15:57 Active 1,000 - 2,000 mg PO Q2H PRN Docusate Sodium [Colace] Med 10/15/16 21:00 Active 100 mg PO BID Fenofibrate [Lofibra 54 mg tablet] Med 10/16/16 09:00 Hold 1 tab PO DAILY Magnesium Hydroxide [Milk of Magnesia] Med 10/16/16 14:27 Active 30 ml PO DAILY PRN Morphine Sulfate Med 10/16/16 07:12 Hold 15 mg PO Q4H PRN Morphine Sulfate Med 10/15/16 18:57 Hold 2 - 4 mg IV Q2H PRN Morphine Sulfate Med 10/16/16 00:48 Hold 2 - 8 mg IV Q2H PRN Morphine Sulfate [Ms Contin] Med 10/16/16 09:00 Active 30 mg PO Q8HR Multivitamins [One-A-Day] Med 10/16/16 09:00 Active 1 tab PO DAILY NS/Potassium Chlor 20 mEq 1,000 ml Med 10/15/16 16:45 Active IV 125 mls/hr Nitrofurantoin Macrocrystal [Macrodantin] Med 10/16/16 09:00 Hold 50 mg PO DAILY Nitroglycerin [Nitrostat] Med 10/15/16 17:53 Active 0.4 mg SL Q5M X 3 DOSES PRN On-Q Pump/Ropivacaine 0.2% 450 ml Med 10/15/16 15:57 Active Premix Bag [Premix Fluid] 1 each NB Q50H Ondansetron 4 mg/2ml Vial [Zofran] Med 10/15/16 15:57 Active 4 - 6 mg IV Q6H PRN Pregabalin [Lyrica] Med 10/15/16 21:00 Active 75 mg PO BID Sodium Chloride 0.9% Flush [Normal Saline 10ml Flush] Med 10/15/16 15:57 Active 10 - 50 ml IV PRN PRN Sodium Chloride 0.9% Flush [Normal Saline 10ml Flush] Med 10/15/16 17:00 Active 10 ml IV Q8HR Temazepam [Restoril] Med 10/15/16 15:57 Active 15 mg PO BEDTIME PRN Intake and Output 10/16/16 10/17/16 10/18/16 23:59 23:59 23:59 Intake Total 1860 1200 600 Output Total 3500 1050 1000 Balance -1640 150 -400 General: Afebrile HEENT: Atraumatic, No Mucous membr. moist/pink (dry mouth) Lungs: Normal Air Movement, Other (Exp wheezing bilateral) Cardiovascular: Regular Rate and Rhythm Abdomen: Soft, Non-Distended Skin: Normal Color Neurological: Grossly Intact, Alert, Oriented x 4 Psych/Mental Status: Normal Affect, Normal Mood - Right Lower Extremity Incision: Dressing Clean/Dry/Intact, Well Approximated, No Drainage Motor: Extensor Hallucis Longus: 5/5, Tibialis Anterior: 5/5, Gastrocnemius: 5/5 , Peroneals: 5/5, Quadriceps: 3/5 Gross Sensation to Light Touch: Present: Deep Peroneal Nerve, Superficial Peroneal Nerve Capillary Refill: < 3 Seconds Motion: Calf soft NT knee rom 0-70 Min assist with SLR - Problems (1) S/P total knee arthroplasty Qualifiers: Qualifier Code: (Z96.651) Presence of right artificial knee joint Status: AcuteAssessment/Plan: Pod#3 1. Physical Therapy:Mobilize with PT/OT. Encouraged bed exercises 2. Pain Control:Opiods d/c'd secondary to airway comprimise and decreased O2 sats 3. DVT Prophylaxis: ASA, foot pumps and mobility 4. Disposition: Will need to improve O2 sats prior to d/c. Chest xray is negative. Pain management will be an issue. May need to consider new neve cath placement. 5. Medical Issues: Decreased O2 sats seems to be related to opiods. My need epi and steriod treatment management per hospitalist appreciate the care and consult.
[2016-10-18] MEDS ORDERED: SODIUM CHLORIDE 0.9% 1,000 ML IV SCH (08:45)
--- NOTE | 2016-10-18 08:48 | PDOC43 ---
- Subjective Chief Complaint: R TKA Patient reported to have some upper airway tightness, hoarseness, along with itching this am. Given Benadryl earlier, helped with itching, but still with some upper airway symptoms, given epinephrine neb. RN noted some difficulty keeping sats above 90% . Some discomfort at sides of upper neck, similar to previous episode. Morphine held this am. - Objective Vital Signs Temperature 98.4 F 10/18/16 07:45 Pulse Rate 59 10/18/16 07:45 Respiratory Rate 14 10/18/16 08:00 Blood Pressure 109/53 10/18/16 07:45 O2 Saturation by Pulse Oximetry 88 10/18/16 07:45 Oxygen Delivery Method Room Air Oxygen Flow Rate 0 Vital Signs Last 12 Hours Temp Pulse Resp BP Pulse Ox 10/18/16 08:00 14 10/18/16 07:45 98.4 F 59 14 109/53 88 10/18/16 07:35 63 18 90 10/18/16 05:00 98.5 F 62 18 132/58 96 10/18/16 01:42 98.6 F 64 18 134/56 95 10/18/16 01:00 18 10/18/16 00:00 98.5 F 61 18 136/52 95 Intake and Output 10/16/16 10/17/16 10/18/16 23:59 23:59 23:59 Intake Total 1860 1200 600 Output Total 3500 1050 1000 Balance -1640 150 -400 General: Alert, Cooperative, Acute Distress (minimal,) HEENT: Other (some tenderness noted at upper neck, no significant masses or deformity. Mouth unrem, normal tongue, lips. Whispery voice.) Lungs: Other (wheezing bilat, end expiratory.) Cardiovascular: Regular Rate and Rhythm Abdomen: Soft, Normal Bowel Sounds, Non-Distended Extremities: Other (dressing on R knee CDI. Trace edema bilat.) Skin: Normal Color Neurological: No Normal Speech (whispery speech.) Psych/Mental Status: Normal Affect Laboratory 10/18/16 05:30 10/17/16 05:30 10/17/16 10/17/16 10/17/16 20:53 12:45 05:30 POC Capillary Glucose 122 H 107 H Calcium 8.3 L Total Protein 6.0 L Albumin 3.4 L Current Medications: Current meds reviewed in EMR. Active Medications Acetaminophen (Tylenol) 1,000 mg PO Q6H [facility] Last Admin: 10/18/16 02:45 Dose: 1,000 mg Ascorbic Acid (Vitamin C) 500 mg PO BID [facility] Last Admin: 10/17/16 20:50 Dose: 500 mg Aspirin (Ecotrin) 325 mg PO DAILY [facility] Last Admin: 10/17/16 10:12 Dose: 325 mg Bisacodyl (Dulcolax) 10 mg ND DAILY PRN PRN Reason: Constipation Bisacodyl (Dulcolax) 10 mg ND DAILY PRN PRN Reason: If no BM by POD#3 Calcium Carbonate/Glycine (Tums) 1,000 - 2,000 mg PO Q2H PRN PRN Reason: Heartburn/Indigestion Docusate Sodium (Colace) 100 mg PO BID [facility] Last Admin: 10/17/16 20:50 Dose: 100 mg Ropivacaine 450 ml/ Sterile (Water) 450 mls @ 0 mls/hr NB Q50H PRN; Protocol PRN Reason: Pain Last Admin: 10/15/16 19:45 Dose: 14 mls/hr Potassium Chloride/Sodium Chloride (Ns/Potassium Chlor 20 Meq) 1,000 mls @ 125 mls/hr IV .Q8H [facility] Last Admin: 10/18/16 02:30 Dose: Not Given Magnesium Hydroxide (Milk Of Magnesia) 30 ml PO DAILY PRN PRN Reason: If no BM by evening of POD#1 Miscellaneous (Fenofibrate [Lofibra 54 Mg Tablet]) 1 tab PO DAILY [facility] Last Admin: 10/17/16 20:13 Dose: Not Given Morphine Sulfate (Morphine Sulfate) 2 - 4 mg IV Q2H PRN PRN Reason: Pain (Severe/Breakthrough) Last Admin: 10/16/16 06:11 Dose: 4 mg Morphine Sulfate (Morphine Sulfate) 2 - 8 mg IV Q2H PRN PRN Reason: Pain (Severe/Breakthrough) Last Admin: 10/17/16 11:47 Dose: 2 mg Morphine Sulfate (Ms Contin) 30 mg PO Q8HR [facility] Last Admin: 10/18/16 02:45 Dose: 30 mg Morphine Sulfate (Morphine Sulfate) 15 mg PO Q4H PRN PRN Reason: Pain Last Admin: 10/17/16 20:56 Dose: 15 mg Multivitamins (One-A-Day) 1 tab PO DAILY [facility] Last Admin: 10/17/16 10:13 Dose: 1 tab Nitrofurantoin Macrocrystals (Macrodantin) 50 mg PO DAILY [facility] Last Admin: 10/17/16 10:12 Dose: 50 mg Nitroglycerin (Nitrostat) 0.4 mg SL Q5M X 3 DOSES PRN PRN Reason: Chest Pain Ondansetron HCl (Zofran) 4 - 6 mg IV Q6H PRN PRN Reason: Nausea/Vomiting Pregabalin (Lyrica) 75 mg PO BID [facility] Last Admin: 10/17/16 20:50 Dose: 75 mg Sodium Chloride (Normal Saline 10ml Flush) 10 - 50 ml IV PRN PRN PRN Reason: IV Flush Last Admin: 10/16/16 07:20 Dose: 10 ml Sodium Chloride (Normal Saline 10ml Flush) 10 ml IV Q8HR [facility] Last Admin: 10/18/16 02:46 Dose: 10 ml Temazepam (Restoril) 15 mg PO BEDTIME PRN PRN Reason: Insomnia Last Admin: 10/15/16 23:47 Dose: 15 mg - Problems: Assessment/Plan (1) S/P total knee arthroplasty Qualifiers: Laterality: right Qualifier Code: (Z96.651) Presence of right artificial knee joint Status: AcuteAssessment/Plan: Appreciate ortho care, nursing care, therapy care. REported to be generally doing well from orthopedic care perspective, but respiratory sx so far will likely delay DC. (2) History of drug-induced anaphylaxis Status: SuspectedAssessment/Plan: Appearing to have a recurrence, now attributed to morphine. 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 Pt has extensive list of medication intolerances, including most narcotics and NSAIDs. Morphine reported to be tolerated well, but ndeveloped some itching 10/17, responded to benadryl This am, with some upper airway sx, given benadryl earlier, but now appearing to have some ongoing resp sx. Plan epinephrine, H2, Steroids, benadryl. (3) Peripheral vascular disease Status: ChronicAssessment/Plan: with L sided femoral (?) stent Previous MADHURI showed good R sided flow (4) S/P CABG x 2 Status: ChronicAssessment/Plan: Had been on Plavix and ASA 81 Now on 325 mg daily ASA, holding Plavix. Consider resumption of Plavix when risks of bleeding felt safe by ortho. Do not suspect ASA in possible anaphylaxis but would not be 100% out of the question. If ongoing sx, would consider whether just going to Plavix would be appropriate. VTE Prophylaxis: ASA, mechanical tx Disposition: anticipate home, but DC may be delayed by respiratory concerns, poss anaphylaxis. Additional Comments: 9:48 am - pt reports getting epinephrine 5 min ago, not sure if having much improvement. Voice still hoarse. Vital Signs Last 12 Hours Temp Pulse Resp BP Pulse Ox 10/18/16 08:00 14 10/18/16 07:45 98.4 F 59 14 109/53 88 10/18/16 07:35 63 18 90 10/18/16 05:00 98.5 F 62 18 132/58 96 10/18/16 01:42 98.6 F 64 18 134/56 95 10/18/16 01:00 18 10/18/16 00:00 98.5 F 61 18 136/52 95
[2016-10-18] MEDS ORDERED: PUMP TUBING ONE (09:19)
[2016-10-18] MEDS: MULTIVITAMINS 1 TAB TABLET PO SCH (09:20)
[2016-10-18] MEDS: FAMOTIDINE 10 MG/ML 2ML VIAL IV SCH ×2 (09:21→20:19)
[2016-10-18] MEDS: PREGABALIN 75 MG CAP PO SCH ×2 (09:21→20:19)
[2016-10-18] MEDS: DOCUSATE SODIUM 100 MG CAPSULE PO SCH ×2 (09:21→20:19)
[2016-10-18] MEDS: ASCORBIC ACID 500 MG TABLET PO SCH ×2 (09:21→20:19)
--- NOTE | 2016-10-18 10:10 | PDOC36 ---
Provider Note Subject: Follow up respiratory status Note: Reviewed with BROWNING PROCESSOR, patient. Voice is a little better now. Airway appears to be doing well at this time, no lip, tongue swelling, airway mobile. BROWNING PROCESSOR reviewed airway, discussed with pt. He will be available for further consultation if needed, but at this time, not expecting to need to intubate. Appreciate BROWNING PROCESSOR input. 10:10 am
[2016-10-18] MEDS: METHYLPRED SOD SUCCINATE 125 MG VIAL IV SCH ×2 (11:53→17:08)
[2016-10-18] MEDS ORDERED: BISACODYL 10 MG SUP PR PRN (14:27)
[2016-10-18] MEDS ORDERED: IV START KIT ONE (18:30)
[2016-10-18] MEDS ORDERED: SODIUM CHLORIDE 0.9% FLUSH 10 ML ONE (18:30)
[2016-10-18] MEDS: TEMAZEPAM 15 MG CAPSULE PO PRN (22:02)
[2016-10-19] MEDS: ACETAMINOPHEN 500 MG TABLET PO SCH ×3 (00:57→13:52)
[2016-10-19] MEDS: METHYLPRED SOD SUCCINATE 125 MG VIAL IV SCH ×3 (00:58→11:30)
[2016-10-19 08:19] LABS: ABSOLUTE NEUTROPHIL COUNT 12.1 K/mm3 (1.8-7.7); BASO % 0.1 % (0.2-1.0); HEMATOCRIT 32.2 % (37.0-47.0); HEMOGLOBIN 10.8 gm/l (12.0-16.0); IMM NEUT # 0.1 K/mm3 (0-0.2); IMM NEUT% 0.7 % (0-1); LYMPH # 1.6 (1.0-4.8); LYMPH % 11.5 % (15-45); MEAN CELL VOLUME 93.6 fl (81.0-99.0); MEAN CORPUSCULAR HEMOGLOBIN 31.4 pg (27.0-31.0); MEAN CORPUSCULAR HGB CONC 33.5 g/dl (33.0-37.0); MEAN PLATELET VOLUME 11.4 fl (7.4-10.4); MONO # 0.3 (0.0-0.8); NEUT % 85.7 % (43-75); PLATELET COUNT 236 K/mm3 (130-400); RED CELL DISTRIBUTION WIDTH 13.5 % (11.5-14.5)
--- NOTE | 2016-10-19 08:27 | PDOC43 ---
- Subjective Findings: Ortho POD 4 R TKA complicated by anaphylaxis Patient awake, A and O times 3 this am and in good spirits. Patient states she feels much better today. She describes having a cough and phlegm production last night. She denies CP or tightness, dyspnea. She reports her itching and throat swelling have resolved. She is tolerating a regular diet and passing gas. No nausea or emesis. She did work with PT yesterday and did reasonably well with amulatory exercises. Knee pain with motion reported as 4-5/10, 1-2 at rest. Subjective: Denies Chest Pain, Denies Shortness of Breath, Denies Nausea, Denies Vomiting, Denies Fever - Objective Vital Signs Temperature 97.8 F 10/19/16 03:30 Pulse Rate 60 10/19/16 03:30 Respiratory Rate 18 10/19/16 07:00 Blood Pressure 129/68 10/19/16 03:30 O2 Saturation by Pulse Oximetry 92 10/19/16 03:30 Oxygen Delivery Method Room Air Oxygen Flow Rate 0 Laboratory 10/18/16 05:30 10/17/16 05:30 10/18/16 10/18/16 10/18/16 21:59 17:08 09:39 POC Capillary Glucose 223 H 174 H 104 H Active Medication Orders Category Date Time Status Acetaminophen [Tylenol] Med 10/15/16 16:00 Active 1,000 mg PO Q6H Ascorbic Acid [Vitamin C] Med 10/15/16 21:00 Active 500 mg PO BID Aspirin (Enteric Coated) [Ecotrin] Med 10/16/16 09:00 Hold 325 mg PO DAILY Bisacodyl [Dulcolax] Med 10/15/16 15:57 Active 10 mg RI DAILY PRN Bisacodyl [Dulcolax] Med 10/18/16 14:27 Active 10 mg RI DAILY PRN Calcium Carbonate [Tums] Med 10/15/16 15:57 Active 1,000 - 2,000 mg PO Q2H PRN Diphenhydramine HCl [Benadryl] Med 10/18/16 08:34 Active 50 mg IV Q6H PRN Docusate Sodium [Colace] Med 10/15/16 21:00 Active 100 mg PO BID Famotidine [Pepcid] Med 10/18/16 09:00 Active 20 mg IV Q12HR Fenofibrate [Lofibra 54 mg tablet] Med 10/16/16 09:00 Hold 1 tab PO DAILY Magnesium Hydroxide [Milk of Magnesia] Med 10/16/16 14:27 Active 30 ml PO DAILY PRN Methylpred Sod Succinate [Solu-Medrol] Med 10/18/16 12:00 Active 62.5 mg IV Q6HR Morphine Sulfate Med 10/16/16 07:12 Hold 15 mg PO Q4H PRN Morphine Sulfate Med 10/15/16 18:57 Hold 2 - 4 mg IV Q2H PRN Morphine Sulfate Med 10/16/16 00:48 Hold 2 - 8 mg IV Q2H PRN Morphine Sulfate [Ms Contin] Med 10/16/16 09:00 Hold 30 mg PO Q8HR Multivitamins [One-A-Day] Med 10/16/16 09:00 Active 1 tab PO DAILY Nitrofurantoin Macrocrystal [Macrodantin] Med 10/16/16 09:00 Hold 50 mg PO DAILY Nitroglycerin [Nitrostat] Med 10/15/16 17:53 Active 0.4 mg SL Q5M X 3 DOSES PRN On-Q Pump/Ropivacaine 0.2% 450 ml Med 10/15/16 15:57 Active Premix Bag [Premix Fluid] 1 each NB Q50H Ondansetron 4 mg/2ml Vial [Zofran] Med 10/15/16 15:57 Active 4 - 6 mg IV Q6H PRN Pregabalin [Lyrica] Med 10/15/16 21:00 Active 75 mg PO BID Sodium Chloride 0.9% Flush [Normal Saline 10ml Flush] Med 10/15/16 15:57 Active 10 - 50 ml IV PRN PRN Sodium Chloride 0.9% Flush [Normal Saline 10ml Flush] Med 10/15/16 17:00 Active 10 ml IV Q8HR Temazepam [Restoril] Med 10/15/16 15:57 Active 15 mg PO BEDTIME PRN Intake and Output 10/17/16 10/18/16 10/19/16 23:59 23:59 23:59 Intake Total 1200 3547 500 Output Total 1050 2775 450 Balance 150 772 50 Lungs: Diminished at Bases Neurological: No Normal Gait (ambulating with a walker post R TKA) Peripheral Pulses: Right Posterior Tibialis: 1+, Right Dorsalis Pedis: 1+ - Right Lower Extremity Incision: Shadow Drainage (minimal), Well Approximated (mild knee edema. thigh and calf are SNT), No Dressing Saturated, No Drainage, No Erythema, No Rash Motor: Extensor Hallucis Longus: 5/5, Tibialis Anterior: 5/5, Gastrocnemius: 4/5 , Peroneals: 5/5, Quadriceps: 4/5 Gross Sensation to Light Touch: Present: Deep Peroneal Nerve, Superficial Peroneal Nerve, Medial Plantar Nerve, Lateral Plantar Nerve, Sural Nerve, Saphenous Nerve Motion: Supine AROM Knee 5-60 with passive improvement. SLR without assist. Full AROM ankle - Problems (1) S/P total knee arthroplasty Qualifiers: Laterality: right Qualifier Code: (Z96.651) Presence of right artificial knee joint Status: AcuteAssessment/Plan: Ortho POD 4 R TKA complicated by mild anaphylaxis- resolved 1. Continue: Physical Therapy:Mobilize with PT/OT. Encouraged bed exercises 2. Continue: Pain Control:Opiods d/c'd secondary to airway comprimise and decreased O2 sats 3. Continue: DVT Prophylaxis: ASA, foot pumps and mobility 4. CBC diff 5. Medical Issues: Appreciate Hospitalist's care. 6. Disposition: Potential discharge today after PT if meets criteria.
[2016-10-19] MEDS: MULTIVITAMINS 1 TAB TABLET PO SCH (09:22)
[2016-10-19] MEDS: FAMOTIDINE 10 MG/ML 2ML VIAL IV SCH (09:22)
[2016-10-19] MEDS: PREGABALIN 75 MG CAP PO SCH (09:22)
[2016-10-19] MEDS: DOCUSATE SODIUM 100 MG CAPSULE PO SCH (09:22)
[2016-10-19] MEDS: ASCORBIC ACID 500 MG TABLET PO SCH (09:22)
--- NOTE | 2016-10-19 11:38 | PDOC43 ---
- Subjective Chief Complaint: R TKA Subjective: Reports Pain Tolerable, Reports Tolerating Diet Well, Denies Shortness of Breath, Denies Chest Pain - Objective Vital Signs Temperature 98 F 10/19/16 08:00 Pulse Rate 64 10/19/16 08:35 Respiratory Rate 18 10/19/16 08:00 Blood Pressure 144/74 10/19/16 08:35 O2 Saturation by Pulse Oximetry 94 10/19/16 08:35 Oxygen Delivery Method Room Air Oxygen Flow Rate 0 Intake and Output 10/18/16 10/19/16 10/20/16 06:59 06:59 06:59 Intake Total 1300 3447 Output Total 1200 2225 Balance 100 1222 General: Alert, Oriented x3, Cooperative, No Acute Distress HEENT: Mucous membr. moist/pink Lungs: Clear to Auscultation Bilaterally Cardiovascular: Regular Rate and Rhythm Abdomen: Soft, Normal Bowel Sounds, Non-Distended, No Tenderness Extremities: No Edema Wound: Dressing Clean/Dry/Intact Laboratory 10/19/16 08:15 10/17/16 05:30 10/19/16 10/18/16 10/18/16 08:15 21:59 17:08 RBC 3.44 L MCH 31.4 H POC Capillary Glucose 223 H 174 H Current Medications: Current meds reviewed in EMR. - Problems: Assessment/Plan (1) S/P total knee arthroplasty Qualifiers: Laterality: right Qualifier Code: (Z96.651) Presence of right artificial knee joint Status: AcuteAssessment/Plan: Appreciate ortho care, nursing care, therapy care. REported to be generally doing well from orthopedic care perspective - likely discharge today (2) Peripheral vascular disease Status: ChronicAssessment/Plan: with L sided femoral (?) stent Previous MADHURI showed good R sided flow (3) S/P CABG x 2 Status: ChronicAssessment/Plan: Had been on Plavix and ASA 81 Now on 325 mg daily ASA, holding Plavix. Resumption of Plavix ordered on 10/23 and will switch to low dose aspirin (4) History of drug-induced anaphylaxis Status: SuspectedAssessment/Plan: Initial respiratory distress felt to be due to drug allergy has completely resolved with solu-Medrol. 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 Pt has extensive list of medication intolerances, including most narcotics and NSAIDs. Morphine reported to be tolerated well, but developed some itching 10/17, responded to benadryl Will treat with PO prednisone for 48h (5) Leukocytosis Qualifiers: Leukocytosis type: unspecified Qualifier Code: (D72.829) Elevated white blood cell count, unspecified Status: AcuteAssessment/Plan: due to steroids VTE Prophylaxis: ASA, mechanical tx Disposition: anticipate home today
[2016-10-19 12:33] VITALS: BP 104/44
--- NOTE | 2016-10-19 16:41 | DS ---
Justa KESSLER [id number] : 1940 DATE OF ADMISSION: October 15, 2016 DATE OF DISCHARGE: October 19, 2016 DISCHARGE DIAGNOSES: Right knee degenerative joint disease. HOSPITAL PROCEDURES: Right total knee arthroplasty. SURGEON: Luca Simmons M.D. BRIEF HISTORY: Patient is a 76 your old with both clinical and radiographic evidence of advanced DJD of their right knee. For the full history please see the chart note. BRIEF HOSPITAL COURSE: Patient was admitted on, October 15, 2016. Dr. Luca Simmons performed a right total knee arthroplasty. They were moved to the recovery room in stable condition. They were given 4 doses of antibiotic for empiric coverage. DVT prophylaxis consisted of aspirin 325 mg daily, Plavix at her resumed home dose, pneumatic compression JENNY hose and mobility. PT was instituted postop day 1 with right total knee arthroplasty protocol, weightbearing as tolerated. Their incision site remained benign, their vital signs remained stable and they remained neurally and vascularly intact through the duration of the stay. The patient accomplished her goals with therapy and mobilization. They were discharged home on postop day, 4 to continue their outpatient PT at [facility] with right total knee arthroplasty protocol, weightbearing as tolerated. Cj Parra M.D. was consulted to manage perioperative medical comorbidities. For his consultation, please see the chart note. The patient developed some mild anaphylaxis secondary to opiate pain medication that have not been problematic for her historically.. She responded well to epinephrine and steroids. She was managed by the hospitalist service for this condition and progressed well. DISCHARGE INSTRUCTIONS: 1. Keep the wound site clean. May shower with Aquacel dressing intact. Call office with any questions or concerns and f/u for your dressing change as scheduled 1 week postop. 2. Continue the use of JENNY hose bilaterally. 3. Cooling unit 3-4 times daily for 30 minutes duration. 4. Outpatient PT at [facility] for right total knee arthroplasty protocol, weightbearing as tolerated. MEDICATIONS: 1. Patient is to resume normal preop medications. 2. Anti-coagulation will be with preoperative Plavix as well as aspirin 325 mg daily for six weeks. 3. Pain management will be with acetaminophen 500 mg one to two tablets every six hours. She also will resume either Advil or Aleve at home at the normal adult dosing. She received no opiates. 4. The patient will also use ice and elevation. 5. Patient was also advised on utilization of a multi-vitamin with mineral daily as well as Vitamin C, 500mg daily for 1 month. 6. Patient encouraged to take an iron supplement in the form of ferrous sulfate, 325mg daily for 4 weeks. 7. Colace, 100mg, b.i.d. until regular bowel movement. FOLLOW-UP: Please return to the clinic as scheduled for your first scheduled postop check. Prior to that point in time please call with any questions or concerns. Job [id number] CC: Nora Carlos Parsons M.D. [facility] in [place]
== END 2016-10-19 15:20 | disposition home or self-care (01) | DRG 470 ==
LOC: OR 10-15 09:14 → MS 10-15 15:50
PROVIDERS: ADMIT Orthopaedic Surgery; ATTEND Orthopaedic Surgery
PROC: 0SRC0J9 Replacement of Right Knee Joint with Synthetic Substitute, Cemented, Open Approach (ICD-10-PCS; principal; 2016-10-15)
DX: M17.11 Unilateral primary osteoarthritis, right knee (principal); I25.10 Atherosclerotic heart disease of native coronary artery without angina pectoris; Z98.61 Coronary angioplasty status; I73.9 Peripheral vascular disease, unspecified; R73.03 Prediabetes; Z66 Do not resuscitate